=== PATIENT | female | born 1950 | race Caucasian/White ===

== ENCOUNTER 2020-12-24 18:18 | Observation (INO) | payer MEDICARE, OTHER ==
[2020-12-24] MEDS ORDERED: SODIUM CHLORIDE 0.9% 1,000 ML IV STA (18:55)
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
[2020-12-24 20:09] LABS: Basophils % (A) 0 %; Eosinophils # (A) 0.3 k/uL (0-0.7); Eosinophils % (A) 6 %; HCT 39.9 % (34.0-46.0); HGB 12.7 gm/dL (11.4-16.0); Lymphocytes # (A) 0.7 k/uL (1.0-4.8); Lymphocytes % (A) 14 %; MCH 26.4 pg (25.0-35.0); MCHC 31.7 g/dL (31.0-37.0); MCV 83.4 fL (80.0-100.0); Mean Platelet Volume 8.5; Monocytes # (A) 0.3 k/uL (0-1.0); Monocytes % (A) 5 %; Neutrophils # (A) 3.8 k/uL (1.3-7.7); Neutrophils % (A) 73 %; Platelet Count 204 k/uL (150-450); RBC 4.79 m/uL (3.80-5.40); RDW 15.5 % (11.5-15.5); WBC 5.2 k/uL (3.8-10.6)
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
[2020-12-24 20:20] LABS: ALT 13 U/L (4-34); AST 24 U/L (14-36); African American GFR (CKD) >90 (>60 ml/min/1.73 sqM); Alcohol <10 mg/dL; Alkaline Phosphatase 128 U/L (38-126); Anion Gap 8 mmol/L; Blood Urea Nitrogen 20 mg/dL (7-17); Calcium 9.8 mg/dL (8.4-10.2); Carbon Dioxide 28 mmol/L (22-30); Chloride 102 mmol/L (98-107); Glucose 97 mg/dL (74-99); Non-African American GFR(CKD) >90 (>60 ml/min/1.73 sqM); Potassium 3.7 mmol/L (3.5-5.1); Sodium 138 mmol/L (137-145); Total Bilirubin 0.5 mg/dL (0.2-1.3); Total Protein 7.2 g/dL (6.3-8.2)
[2020-12-24 20:27] LABS: INR 0.9 (<1.2); Partial Thromboplastin Time 21.8 sec (22.0-30.0); Prothrombin Time 9.8 sec (9.0-12.0)
[2020-12-24 20:59] LABS: Appearance,Urine Clear (Clear); Bilirubin,Urine Negative (Negative); Blood,Urine Negative (Negative); Color,Urine Light Yellow; Glucose,Urine (UA) Negative (Negative); Ketones,Urine Negative (Negative); Leukocyte Esterase,Urine Negative (Negative); Nitrite,Urine Negative (Negative); Protein,Urine Negative (Negative); Specific Gravity,Urine 1.006 (1.001-1.035); Urobilinogen,Urine <2.0 mg/dL (<2.0)
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
[2020-12-24] MEDS ORDERED: NALOXONE 0.4 MG/ML 1 ML VIAL IV PRN (21:56)
[2020-12-24 22:06] LABS: Amphetamine Screen,Urine Not Detected (NotDetected); Barbiturate Screen,Urine Not Detected (NotDetected); Benzodiazepines Screen,Urine Not Detected (NotDetected); Cocaine Screen,Urine Not Detected (NotDetected); Methadone Screen, Urine Not Detected (NotDetected); Opiate Screen,Urine Not Detected (NotDetected); Oxycodone Screen, Urine Not Detected (NotDetected); Phencyclidine Screen,Urine Not Detected (NotDetected); Tricyclic Antidepressant,Urine Not Detected (NotDetected); Urn Cannabinoid Scrn Not Detected (NotDetected)
[2020-12-24] MEDS ORDERED: HYDROcodone/APAP 7.5-325MG 1 EACH TAB PO ONE (22:48)
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
[2020-12-25] MEDS: HYDROcodone/APAP 7.5-325MG 1 EACH TAB PO PRN ×2 (05:29→19:59)
[2020-12-25] MEDS: LEVOTHYROXINE 50 MCG TAB PO SCH (05:29)
[2020-12-25] MEDS: GABAPENTIN 400 MG CAP PO SCH ×3 (08:03→19:59)
[2020-12-25] MEDS: SPIRONOLACTONE 25 MG TAB PO SCH (08:03)
[2020-12-25] MEDS: CLOPIDOGREL 75 MG TAB PO SCH (08:03)
[2020-12-25] MEDS: ASPIRIN 81 MG PO SCH (08:03)
[2020-12-25] MEDS: lisinopriL 5 MG TAB PO SCH (08:04)
[2020-12-25] MEDS ORDERED: DILTIAZEM CD 120 MG CAP.ER.24H PO SCH (09:00)
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
--- NOTE | 2020-12-25 12:35 | ECHOF ---
Referral Reason: MEASUREMENTS -------- HEIGHT: 152.4 cm WEIGHT: 122.5 kg BP: IVSd: 1.1 cm (0.6 - 1.1) LVIDd: 3.9 cm (3.9 - 5.3) LVPWd: 1.0 cm (0.6 - 1.1) IVSs: 1.5 cm LVIDs: 1.3 cm LVPWs: 1.3 cm LAESV Index (A-L): 27.93 ml/m Ao Diam: 3.1 cm (2.0 - 3.7) AV Cusp: 1.2 cm (1.5 - 2.6) LA Diam: 3.2 cm (2.7 - 3.8) MV EXCURSION: 11.800 mm (> 18.000) MV EF SLOPE: 47 mm/s (70 - 150) EPSS: 1.0 cm MV E Pantera: 1.09 m/s MV DecT: 263 ms MV A Pantera: 1.02 m/s MV E/A Ratio: 1.07 AV maxP.49 mmHg AV meanP.34 mmHg AR PHT: 565 ms RAP: 5.00 mmHg RVSP: 15.61 mmHg FINDINGS -------- Sinus rhythm. This was a technically adequate study. The left ventricular size is normal. Left ventricular wall thickness is normal. Overall left vent ricular systolic function is normal with, an EF between 55 - 60 %. Normal LAP Grade 1 Diastolic Dy sfunction. The right ventricle is normal in size. Normal LA size by volume 22+/-6 ml/m2. The right atrial size is normal. There is moderate aortic valve sclerosis. There is mild aortic regurgitation. There is mild aorti c stenosis present. Peak/mean gradient across the Aortic Valve is 31.49mmHg / 16.34mmHg. Mild mitral annular calcification present. Mild mitral regurgitation is present. The tricuspid valve appears structurally normal. Mild tricuspid regurgitation present. Right vent ricular systolic pressure is normal at < 35 mmHg. There is no pulmonic regurgitation present. The aortic root size is normal. Normal inferior vena cava with normal inspiratory collapse consistent with estimated right atrial pre ssure of 5 mmHg. There is no pericardial effusion. CONCLUSIONS -------- 1. Overall left ventricular systolic function is normal with, an EF between 55 - 60 %. 2. Normal LAP Grade 1 Diastolic Dysfunction. 3. Normal LA size by volume 22+/-6 ml/m2. 4. There is moderate aortic valve sclerosis. 5. There is mild aortic regurgitation. 6. There is mild aortic stenosis present. 7. Peak/mean gradient across the Aortic Valve is 31.49mmHg / 16.34mmHg. 8. Mild mitral regurgitation is present. 9. Mild tricuspid regurgitation present. 10. There is no pericardial effusion. CONCRETE HANDLER: Nyla Kendall RDCS
[2020-12-25 14:41] LABS: Chol/HDL Ratio 3.96
[2020-12-25] MEDS: PRAMIPEXOLE 0.5 MG TAB PO SCH ×2 (15:10→20:00)
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
[2020-12-25] MEDS: ALPRAZolam 0.25 MG TAB PO PRN ×2 (17:33→23:05)
--- NOTE | 2020-12-25 17:55 | P.PN ---
Subjective No acute events overnight Objective - Vital Signs Vital signs: Vital Signs Temp 98.2 F 12/25/20 14:49 Pulse 62 12/25/20 14:49 Resp 17 12/25/20 14:49 BP 133/69 12/25/20 14:49 Pulse Ox 98 12/25/20 14:49 Intake & Output 12/24/20 12/25/20 12/25/20 18:59 06:59 18:59 Weight 122.47 kg 122.47 kg Other: Voiding Method Toilet # Voids 2 1 - Exam General: The patient is awake and alert, in no distress Eye: there is normal conjunctiva bilaterally. Neck: The neck is supple, there is no JVD. Cardiovascular: Normal S1-S2, no S3-S4, no murmurs. Respiratory: Lungs clear to auscultation bilaterally Gastrointestinal: Abdomen is soft, nontender Musculoskeletal: There is no pedal edema. Neurological:. Speech is normal. Skin: Skin is warm and dry - Labs CBC & Chem 7: 12/24/20 19:24 12/24/20 19:24 Labs: Abnormal Lab Results - Last 24 Hours (Table) 12/24/20 12/24/20 12/24/20 Range/Units 19:24 19:24 19:24 Lymphocytes # 0.7 L (1.0-4.8) k/uL APTT 21.8 L (22.0-30.0) sec BUN 20 H (7-17) mg/dL Alkaline Phosphatase 128 H (38-126) U/L HDL Cholesterol (40.0-60.0) mg/dL 12/25/20 Range/Units 02:19 Lymphocytes # (1.0-4.8) k/uL APTT (22.0-30.0) sec BUN (7-17) mg/dL Alkaline Phosphatase (38-126) U/L HDL Cholesterol 26.0 L (40.0-60.0) mg/dL Assessment and Plan Assessment: Syncopal episodes Echocardiogram with preserved EF and no significant valvular abnormality Cleared by neurology Continue telemetry monitoring with possible loop recorder outpatient Seen and evaluated by cardiology Serial troponins are negative Covid testing negative Imaging showed no acute fractures or pathology Chronic conditions Hypertension resume cardiac meds hypothyroidism levothyroxin GERD resume PPI DVT prophylaxis mechanical Anticipated length of stay less than 2 midnights Anticipated discharge home Anticipated discharge home tomorrow
[2020-12-25] MEDS ORDERED: MONTELUKAST 10 MG TAB PO SCH (21:00)
[2020-12-26] MEDS: HYDROcodone/APAP 7.5-325MG 1 EACH TAB PO PRN ×2 (05:38→14:23)
[2020-12-26] MEDS: LEVOTHYROXINE 50 MCG TAB PO SCH (05:39)
[2020-12-26 06:29] LABS: African American GFR (CKD) 88 (>60 ml/min/1.73 sqM); Anion Gap 5 mmol/L; Blood Urea Nitrogen 21 mg/dL (7-17); Carbon Dioxide 29 mmol/L (22-30); Chloride 104 mmol/L (98-107); Glucose 88 mg/dL (74-99); Non-African American GFR(CKD) 76 (>60 ml/min/1.73 sqM); Potassium 4.2 mmol/L (3.5-5.1); Sodium 138 mmol/L (137-145)
[2020-12-26 07:36] VITALS: RESP 16
[2020-12-26] MEDS: ASPIRIN 81 MG PO SCH (08:09)
[2020-12-26] MEDS: CLOPIDOGREL 75 MG TAB PO SCH (08:10)
[2020-12-26] MEDS: GABAPENTIN 400 MG CAP PO SCH (08:11)
[2020-12-26] MEDS: lisinopriL 5 MG TAB PO SCH (08:11)
[2020-12-26] MEDS: PRAMIPEXOLE 0.5 MG TAB PO SCH (08:12)
[2020-12-26] MEDS ORDERED: SODIUM CHLORIDE 0.9% 1,000 ML IV SCH ×2 (08:30)
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
[2020-12-26] MEDS ORDERED: CLINDAMYCIN 600 MG in DEXTROSE 5% IN WATER 50 ML IVPB STA ×2 (09:18)
[2020-12-26] MEDS ORDERED: LIDOCAINE 1% INJ 10MG/ML (20 ML MDV) ONE (09:18)
[2020-12-26] MEDS ORDERED: SODIUM CHLORIDE 0.9% 500 ML 500 ML IV ONE (09:55)
[2020-12-26] MEDS ORDERED: fentaNYL (PF) 50 MCG/ML 2 ML AMP ONE (09:56)
[2020-12-26] MEDS ORDERED: MIDAZOLAM 2 MG/2 ML VIAL IV ONE (09:58)
[2020-12-26] MEDS ORDERED: fentaNYL (PF) 50 MCG/ML 2 ML AMP IV ONE (09:58)
[2020-12-26] MEDS ORDERED: LIDOCAINE 1% INJ 10MG/ML (20 ML MDV) SQ ONE (09:59)
[2020-12-26] MEDS ORDERED: ACETAMINOPHEN TAB 325 MG TAB PO PRN (10:06)
--- NOTE | 2020-12-26 10:10 | P.PCN ---
Date of Procedure: 12/26/20 Preoperative Diagnosis: Unexplained syncope Postoperative Diagnosis: The same Procedure(s) Performed: Insertion of loop recorder Description of Procedure: This is a 70-year-old female was admitted to the hospital with unexplained syncope. Patient was brought to the lab in a fasting state. She was prepped and draped in the usual fashion. She was given 1 mg of Versed and 50 g of fentanyl. The skin in the third intercostal space was infiltrated with lidocaine. An incision was made and stress loop recorder was inserted. The model number is [id number]. And the serial number is [id number]. The and she she was closed with one stay silk suture. Patient tolerated the procedure well. Final impression: Successful implantation of loop recorder. Plan: Patient could be discharged home later today. Follow-up with Dr. Mancuso as an outpatient
--- NOTE | 2020-12-26 10:44 | XR ---
EXAMINATION TYPE: XR chest 1V portable DATE OF EXAM: 12/26/2020 HISTORY: Shortness of breath. COMPARISON: 12/24/2020 TECHNIQUE: Single view of the chest is submitted. FINDINGS: Demonstrated are scattered senescent parenchymal change. There is no evidence for focal infiltrate. The heart is stable. Hilar and mediastinal structures are within normal limits. Degenerative changes are seen of the dorsal spine. IMPRESSION: 1. Chronic changes without evidence for acute pulmonary disease.
[2020-12-26] MEDS: ALPRAZolam 0.25 MG TAB PO PRN (12:06)
[2020-12-26] MEDS: SPIRONOLACTONE 25 MG TAB PO SCH (12:35)
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
[2020-12-26 14:59] VITALS: BP 107/70; PULSE 72; TEMP 97.8
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
[2020-12-27] MEDS ORDERED: CLINDAMYCIN 600 MG in SODIUM CHLORIDE 0.9% 250 ML IRRIGATION PRN (07:00)
== END 2020-12-26 17:02 | disposition home or self-care (01) ==
LOC: EC 18:18 → MERGE 21:56 → 3SCARD 21:56 → 6NMEDSUR 22:12
PROVIDERS: ADMIT Internal Medicine; ATTEND Internal Medicine
DX: R55 Syncope and collapse (principal); I44.0 Atrioventricular block, first degree; I08.3 Combined rheumatic disorders of mitral, aortic and tricuspid valves; I49.3 Ventricular premature depolarization; I49.1 Atrial premature depolarization; G47.33 Obstructive sleep apnea (adult) (pediatric); I65.23 Occlusion and stenosis of bilateral carotid arteries; I10 Essential (primary) hypertension; I89.0 Lymphedema, not elsewhere classified; E03.9 Hypothyroidism, unspecified; I73.9 Peripheral vascular disease, unspecified; K21.9 Gastro-esophageal reflux disease without esophagitis; M19.90 Unspecified osteoarthritis, unspecified site; E66.9 Obesity, unspecified; Z68.43 Body mass index [BMI] 50.0-59.9, adult; M25.512 Pain in left shoulder; V43.52XA Car driver injured in collision with other type car in traffic accident, initial encounter; Z20.822 Contact with and (suspected) exposure to COVID-19; Z79.82 Long term (current) use of aspirin; Z79.02 Long term (current) use of antithrombotics/antiplatelets; Z79.890 Hormone replacement therapy; Z79.899 Other long term (current) drug therapy; Z88.0 Allergy status to penicillin; Z88.6 Allergy status to analgesic agent; Z98.84 Bariatric surgery status; Z90.710 Acquired absence of both cervix and uterus; Z98.891 History of uterine scar from previous surgery; Z96.611 Presence of right artificial shoulder joint; Z96.642 Presence of left artificial hip joint; Z85.038 Personal history of other malignant neoplasm of large intestine; Z98.1 Arthrodesis status; Z98.890 Other specified postprocedural states
CPT/HCPCS: 99285; 36415; 93005; 93306; 86900; 86901; 80061; 80053; 80048; 84484 ×2; 85025; 85610; 85730; 86850; 81003; 80306; 87635; 72170; 73030; 71045 ×2; 93880; 70450; 33285; G0378 ×3; C1764; G0480; J2250; J2001; J3010; 80320

== ENCOUNTER → 2021-01-13 | Outpatient (CLI) | payer MEDICARE, OTHER ==
--- NOTE | 2021-01-16 12:58 | MM ---
Reason for exam: clinical finding. Last mammogram was performed 2 years and 10 months ago. History: Patient is postmenopausal. Family history of breast cancer in sister at age 55. Indicated problem(s): palpable abnormality in the right breast. Physical Findings: Nurse did not find any significant physical abnormalities on exam. MG 3D Diag Mammo W/Cad GISELE Bilateral CC and MLO view(s) were taken. Prior study comparison: March 20, 2018, [place] [facility] [place] 04, 2016, mammogram, [place] [facility] [place]. There are scattered fibroglandular densities. There are benign appearing round calcifications bilaterally. Prominent bilateral axillary lymph nodes redemonstrated. Loop recorder left posterior lower inner quadrant redemonstrated. These results were verbally communicated with the patient on 01/16/21. ASSESSMENT: Incomplete: need additional imaging evaluation, BI-RAD 0 RECOMMENDATION: Ultrasound of the right breast. (palpable)
--- NOTE | 2021-01-16 13:01 | USB ---
Reason for exam: additional evaluation requested from abnormal screening. History: Patient is postmenopausal. Family history of breast cancer in sister at age 55. US Breast Axilla RT Right breast axilla ultrasound demonstrates a 1.6 x 1.4 x 1.0cm irregular, solid, hyperechoic lesion at the axilla, possible lipoma but palpable. These results were verbally communicated with the patient and result sheet given to the patient on 01/13/21. ASSESSMENT: Suspicious, BI-RAD 4 RECOMMENDATION: Ultrasound core biopsy of the right breast. Called Dr. Mcgarry's office with mammographic findings and has scheduled an appointment for the patient for 01/22/21 at 10:[address] Kent. PRELIMINARY REPORT CALLED AND FAXED TO DR. KENT ON 01/16/21.
== END | disposition home or self-care (01) ==
LOC: RADMAMWWP 07:40
PROVIDERS: ATTEND Family Medicine
DX: R92.8 Other abnormal and inconclusive findings on diagnostic imaging of breast (principal); N63.11 Unspecified lump in the right breast, upper outer quadrant
CPT/HCPCS: 77066; 76642; G0279; 77062

== ENCOUNTER → 2021-02-04 | Day surgery (SDC) | payer MEDICARE, OTHER ==
[2021-02-04 10:17] VITALS: BP 125/72; PULSE 67; RESP 16; TEMP 98.1
--- NOTE | 2021-02-04 14:06 | USB ---
EXAMINATION TYPE: US discontinued breast core RT DATE OF EXAM: 02/04/2021 Comparison: Ultrasound 01/13/2021 and previous mammograms 01/13/2021 and 03/20/2018 Clinical History: 70-year-old female referred for right breast biopsy, R92.8 abn mamm Findings: Initial scanning for biopsy planning in the axillary region shows residual vague echogenic area at th e patient's previous palpable site measuring 1.3 x 0.6 cm. This is in comparison to 1.8 x 0.9 cm, pre viously. The patient reports that this area is no longer palpable. The patient is further questioned and reports the use of blood thinners and frequent bruising. Findin gs suspected to represent a small resolving hematoma. Additional 3 month follow-up is recommended to reassess. Just deep to this area within the right axilla is a prominent 2.5 x 1.6 x 0.9 cm axillary lymph node that shows eccentric 7 mm smooth cortical thickening. A chronic reactive lymph node is favored given the appearance on the 2018 and recent mammograms. This should also be reassessed at the follow-up ult rasound. Biopsy is discontinued. Findings and impression are discussed with the patient. IMPRESSION: 1. BI-RADS 3, probably benign. RECOMMENDATION: 1. Three-month follow-up right axillary ultrasound for (a) suspected involuting small hematoma and (b ) mildly enlarged and mildly thickened lymph node, suspected chronic reactive node when correlating w ith prior mammograms. 2. Patient should continue monthly self breast exams. 3. These results should not preclude additional follow-up of suspicious palpable abnormalities.
== END ==
LOC: RADUSWWP 09:10
PROVIDERS: ATTEND Surgery
DX: N63.10 Unspecified lump in the right breast, unspecified quadrant (principal); R92.8 Other abnormal and inconclusive findings on diagnostic imaging of breast; Z88.0 Allergy status to penicillin

== ENCOUNTER → 2021-06-17 | Outpatient (CLI) | payer MEDICARE ==
--- NOTE | 2021-06-18 11:03 | BD ---
EXAMINATION TYPE: Axial Bone Density DATE OF EXAM: 06/17/2021 COMPARISON: NONE CLINICAL HISTORY: 70 years year old Female. ICD-10 CODE: M85.89 DISORDER OF BONE DENSITY Height: 5 FT Weight: 270 FRAX RISK QUESTIONS: Alcohol (3 or more units per day): NO Family History (Parent hip fracture): NO Glucocorticoids (More than 3mos): NO (Ex: prednisone, prednisolone, methylprednisolone, dexamethasone, and hydrocortisone). History of Fracture in Adulthood: NO Secondary Osteoporosis: 1. Type 1 Diabetes: NO 2. Hyperthyroidism: NO 3. Menopause before 45: YES 4. Malnutrition: NO 5. Chronic liver disease: NO Rheumatoid Arthritis: YES Current Tobacco Use: NO RISK FACTORS HISTORY OF: Surgery to Spine/Hip(right/left)/Wrist (right/left): LEFT HIP REPLACED 2018,LUMBAR SURG L4-L5 PLATE A ND SCREWS DONE 2014 Family History of Osteoporosis: NO Active: NO Diet low in dairy products/other sources of calcium: NO Postmenopausal woman: YES Take estrogen and/or progesterone medications: DID USE HRT NO LONGER TAKES Lost more than 2 inches in height since high school: YES Frequent falls: UNSTEADY USES A WALKER Poor Health: FAIR Hyperparathyroidism: NO Adrenal Insufficiency: NO MEDICATIONS: Thyroid Medications: YES Which medication: LEVOTHYROXINE How Long: SEV YEARS Additional Medications: GABAPENTIN, LOSARTAN, LEVOTHYROXINE,PLAVIX, ASPIRIN,,H2O PILL, RESTLESS LEGS MEDS, Additional History: LYMPHADEMA IN BOTH LEGS EXAM MEASUREMENTS: Bone mineral density about the R hip (g/cm2): 0.635 T Score values are as follows: -----R Neck: -2.9 -----R Total: -3.0 PREV DONE [facility] Bone mineral density about the L Wrist (g/cm2): 0.562 T Score values are as follows: -----Dist. R+U: 1.1 -----Prox. R+U: -2.4 -----Radius total: -1.9 LAST BONE DESNITY DONE AT [facility] FRAX%s: The graph provided illustrates a 17.8% chance for a major osteoporotic fx and a 5.2 % chance for the hips probability for fx in 10 years time. IMPRESSION: Osteoporosis NOTE: T-SCORE=SD OF THE YOUNG ADULT MEAN.
== END | disposition home or self-care (01) ==
LOC: RADBDWWP 14:22
PROVIDERS: ATTEND Family Medicine
DX: M85.89 Other specified disorders of bone density and structure, multiple sites (principal)
CPT/HCPCS: 77080

== ENCOUNTER → 2021-06-24 | Outpatient (CLI) | payer MEDICARE ==
--- NOTE | 2021-06-24 14:18 | USB ---
Reason for exam: follow-up at short interval from prior study. History: Patient is postmenopausal. Family history of breast cancer in sister at age 55. US discontinued breast core RT of the right breast, February 04, 2021. Physical Findings: A clinical breast exam by your physician is recommended on an annual basis and results should be correlated with mammographic findings. US Breast Axilla RT Right breast axilla ultrasound demonstrates a 1.0cm lymph node with thickened 0.6cm cortex at the axillary tail, stable in size from 02/04/21. ASSESSMENT: Probably benign, BI-RAD 3 RECOMMENDATION: Ultrasound of the right breast in 3 months. Consider PET/CT for axillary lymph node.
== END | disposition home or self-care (01) ==
LOC: RADUSWWP 12:29
PROVIDERS: ATTEND Surgery
DX: R92.8 Other abnormal and inconclusive findings on diagnostic imaging of breast (principal)

== ENCOUNTER → 2021-09-02 | Outpatient (CLI) | payer MEDICARE, OTHER ==
--- NOTE | 2021-09-03 07:30 | CA ---
Transthoracic Echo Report Name: Henok Saenz Age: 70 Gender: F : 1950 Exam Date: 09/02/2021 13:47 Exam Location: [facility] Ht (in): 60 Wt (lb): 272 Ordering Physician: Huy Mcgarry DO Attending/Referring Phys: Alicia Aranda PAC [employer] Engineer Ambreen Hduson RDCS Procedure CPT: Indications: R60.0 Edema R53.83 Fatigue Cardiac Hx: Technical Quality: Fair Contrast 1: Total Dose (mL): Contrast 2: Total Dose (mL): MEASUREMENTS (Male / Female) Normal Values 2D ECHO LV Diastolic Diameter PLAX 3.6 cm 4.2 - 5.9 / 3.9 - 5.3 cm LV Systolic Diameter PLAX 2.5 cm IVS Diastolic Thickness 1.1 cm 0.6 - 1.0 / 0.6 - 0.9 cm LVPW Diastolic Thickness 1.1 cm 0.6 - 1.0 / 0.6 - 0.9 cm LV Relative Wall Thickness 0.6 RV Internal Dim ED PLAX 3.4 cm LVOT Diameter 2.0 cm LA Systolic Diameter LX 3.6 cm 3.0 - 4.0 / 2.7 - 3.8 cm M-MODE Aortic Root Diameter MM 2.8 cm MV E Point Septal Separation 0.4 cm DOPPLER AV Peak Velocity 237.5 cm/s AV Peak Gradient 22.6 mmHg AV Mean Velocity 167.4 cm/s AV Mean Gradient 12.5 mmHg AV Velocity Time Integral 50.2 cm AI Peak Velocity 321.9 cm/s AI Peak Gradient 41.4 mmHg AI Pressure Half Time 1198.0 ms LVOT Peak Velocity 133.5 cm/s LVOT Peak Gradient 7.1 mmHg LVOT Velocity Time Integral 27.0 cm LVOT Stroke Volume 87.9 cm??? LVOT Stroke Volume Index 41.3 ml/m??? AV Area Cont Eq vti 1.8 cm??? AV Area Cont Eq pk 1.8 cm??? MV Area PHT 2.8 cm??? Mitral E Point Velocity 113.3 cm/s Mitral A Point Velocity 107.0 cm/s Mitral E to A Ratio 1.1 MV Deceleration Time 274.5 ms MV E' Velocity 8.4 cm/s Mitral E to MV E' Ratio 13.6 FINDINGS Left Ventricle Left ventricular ejection fraction is estimated at 60-65 %. Left ventricular cavity size normal. Borderline left ventricular hypertrophy. Right Ventricle Mild right ventricular dilatation. Unable to estimate the right ventricular systolic pressure. Right Atrium Normal right atrial size. Left Atrium Normal left atrial size. Mitral Valve Mitral annular calcification. Aortic Valve Focal thickening of the aortic valve cusps. Mild aortic stenosis with a peak gradient of 23 mmHg and a mean gradient of 15 mmHg. Trace to mild aortic regurgitation. Tricuspid Valve Structurally normal tricuspid valve. No tricuspid stenosis, regurgitation or prolapse. Pulmonic Valve Pulmonic valve not well visualized. Pericardium Normal pericardium. Aorta Normal size aortic root and proximal ascending aorta. CONCLUSIONS Normal left ventricular ejection fraction 60-65% Mild right ventricular dilation Mild aortic stenosis with mean gradient of 15 mmHg Mild aortic regurgitation Previewed by: Dr. Aidan Moreno DO (Electronically Signed) Final Date: 03 September 2021 07:29
== END | disposition home or self-care (01) ==
LOC: RADECHMAIN 13:29
PROVIDERS: ATTEND Family Medicine
DX: I51.7 Cardiomegaly (principal); I35.0 Nonrheumatic aortic (valve) stenosis; R11.10 Vomiting, unspecified
CPT/HCPCS: 93306

== ENCOUNTER 2021-09-11 06:06 | Day surgery (SDC) | payer MEDICARE, OTHER ==
[~2021-09-11 06:06] MED LIST: ALPRAZolam 0.25 MG TAB PO PRN; ALPRAZolam 0.5 MG TAB PO PRN; ASPIRIN 325 MG TAB PO STA; ATORVASTATIN 80 MG TAB PO STA; NITROGLYCERIN SL TABS 0.4 MG TAB SUBLINGUAL PRN; SODIUM CHLORIDE 0.9% 1,000 ML in EMPTY BAG 1 BAG IV SCH
[2021-09-11] MEDS ORDERED: HEPARIN SODIUM,PORCINE 2,500 UNIT in SODIUM CHLORIDE 0.9% 250 ML IRRIGATION PRN (07:00)
[2021-09-11] MEDS ORDERED: HEPARIN SODIUM,PORCINE 10,000 UNIT in SODIUM CHLORIDE 0.9% 1,000 ML IRRIGATION PRN (07:00)
[2021-09-11 07:13] VITALS: RESP 16; TEMP 97.5
[2021-09-11] MEDS ORDERED: VERAPAMIL 2.5 MG/ML 2 ML AMP ONE (07:14)
[2021-09-11] MEDS ORDERED: HEPARIN SODIUM 1,000 UN/ML (10ML VL) ONE (07:37)
[2021-09-11] MEDS ORDERED: fentaNYL (PF) 50 MCG/ML 2 ML AMP ONE (07:37)
[2021-09-11] MEDS: fentaNYL (PF) 50 MCG/ML 2 ML AMP IVP ONE ×2 (07:54→08:02)
[2021-09-11] MEDS ORDERED: MIDAZOLAM 2 MG/2 ML VIAL IVP ONE (07:59)
[2021-09-11] MEDS ORDERED: LIDOCAINE 1% INJ 10MG/ML (5 ML VIAL-PF) SQ ONE (08:03)
[2021-09-11] MEDS ORDERED: VERAPAMIL SYRINGE (5 MG/10 ML) INTRAARTER ONE (08:06)
[2021-09-11] MEDS ORDERED: HEPARIN SODIUM 1,000 UN/ML (10ML VL) IVP ONE (08:11)
[2021-09-11] MEDS ORDERED: IOPAMIDOL-370 125ML BTL INJ ONE (08:17)
[2021-09-11] MEDS ORDERED: RX INFO: IV CONTRAST WAS GIVEN 1 EACH MISC MISCELLANE PRN (08:27)
[2021-09-11] MEDS ORDERED: HYDROcodone/APAP 7.5-325MG 1 EACH TAB PO PRN (08:28)
[2021-09-11] MEDS ORDERED: SODIUM CHLORIDE 0.9% 1,000 ML IV SCH (08:30)
--- NOTE | 2021-09-11 08:37 | P.CARDCATH ---
Date of Procedure: 09/11/21 Description of Procedure: Cardiac Catheterization: The patient is a 70-year-old female with a history of hypertension peripheral vascular disease who presents with symptoms of progressive dyspnea and an abnormal MPI. Recommendations were made regarding cardiac catheterization, the risks and the complications were discussed with the patient who is in full understanding and agreement. Procedure Description: Patient was brought to slab lifting engineer in fasting semi-sedated state after receiving Fentanyl and Benadryl achieiving moderate conscious sedated state. Using Xylocaine Anesthesia and Seldinger technique, a 6-[place]i sheath was introduced in the right radial artery . Subsequently, selective coronary angiography performed using a 5-[place]i 3.5 bend Suzanne catheter. Multiple views of the coronary artery including hemiaxial views were obtained. The 5-[place] pigtail catheter was used to cross the aortic valve and LVEDP was calculated. Following that, catheter and sheath were removed. Hemostasis was obtained with deployment of TR band . There was no immediate complication. Patient was returned to room in stable condition. Of note, the patient received a total of 5000 units of intravenous heparin as well as intra-arterial verapamil. There was no immediate complications. Findings: Fluoroscopy: There is severe calcification involving the left main and the proximal LAD Left main: This is a size vessel, bifurcating into LAD and left circumflex, left main has no evidence of high-grade stenosis. LAD: This is a size vessel, reaching to the apex is heavily calcified proximally, giving rise to 2 diagonal branch. The LAD had a 10 to 20% plaque with no high-grade stenosis. Left circumflex: This is a nondominant vessel, giving rise to a large obtuse marginal branch. The ostium of the left circumflex has 20% plaque. RCA: This is a large dominant vessel, calcified, bifurcating into PDA and PLV. The proximal and mid RCA had 10-20% plaque. Left Ventriculogram: Was not performed Hemodynamics: There was no gradient across the aortic valve, LVEDP 14-16 mmHg Conclusion: 1. Calcified coronary arteries 2. Mild triple vessel disease 3. Right dominance Recommendations: I have recommended to continue medical therapy with aggressive coronary risks modifications. The findings and recommendations were discussed with the patient. Duration of sedation: 18 minutes.
[2021-09-11] MEDS ORDERED: ASPIRIN 81 MG PO SCH (09:00)
[2021-09-11] MEDS ORDERED: CLOPIDOGREL 75 MG TAB PO SCH (09:00)
[2021-09-11] MEDS ORDERED: ATORVASTATIN 40 MG TAB PO SCH (09:00)
[2021-09-11] MEDS ORDERED: LOSARTAN 25 MG TAB PO SCH (09:00)
[2021-09-11] MEDS ORDERED: NON FORMULARY DRUG (Famotidine [Pepcid] 40 MG Tablet) PO SCH (09:00)
[2021-09-11] MEDS ORDERED: NON FORMULARY DRUG (Spironolactone [Spironolactone] 50 MG Tablet) PO SCH (09:00)
[2021-09-11] MEDS ORDERED: GABAPENTIN 400 MG CAP PO SCH (09:00)
[2021-09-11] MEDS ORDERED: LEVOTHYROXINE 50 MCG TAB PO SCH (09:00)
[2021-09-11] MEDS ORDERED: NON FORMULARY DRUG (Cholecalciferol (Vitamin D3) [Vitamin D3 (125 Mcg = 5,000 Iu)] 125 MCG PO SCH (15:00)
[2021-09-11 16:16] VITALS: BP 137/76; PULSE 80
[2021-09-11] MEDS ORDERED: DOCUSATE 100 MG CAP PO SCH (21:00)
[2021-09-11] MEDS ORDERED: NON FORMULARY DRUG (Vitamin B Complex [Vitamin B Complex] 1 EACH Capsule) PO SCH (21:00)
[2021-09-11] MEDS ORDERED: MONTELUKAST 10 MG TAB PO SCH (21:00)
[2021-09-14] MEDS ORDERED: NON FORMULARY DRUG (Zinc Gluconate 50 MG Tab) PO SCH (08:28)
== END 2021-09-11 12:37 | disposition home or self-care (01) ==
LOC: CATHCVL 06:06
PROVIDERS: ATTEND Internal Medicine Interventional Cardiology
DX: I25.10 Atherosclerotic heart disease of native coronary artery without angina pectoris (principal); R94.39 Abnormal result of other cardiovascular function study; I10 Essential (primary) hypertension; I73.9 Peripheral vascular disease, unspecified; R55 Syncope and collapse; G47.33 Obstructive sleep apnea (adult) (pediatric); Z20.822 Contact with and (suspected) exposure to COVID-19; Z79.82 Long term (current) use of aspirin; Z79.899 Other long term (current) drug therapy; Z79.890 Hormone replacement therapy; Z79.02 Long term (current) use of antithrombotics/antiplatelets; Z88.0 Allergy status to penicillin; Z88.8 Allergy status to other drugs, medicaments and biological substances
CPT/HCPCS: 93458; 87635; C1769 ×3; C1894; J2250; J2001; J3010; J1644; Q9967

== ENCOUNTER 2021-10-02 08:54 | Emergency (ER) | payer MEDICARE, OTHER ==
[2021-10-02 09:09] VITALS: RESP 20; TEMP 98.8
[2021-10-02] MEDS ORDERED: HYDROmorphone 0.5 MG/0.5 ML SYRINGE IM STA (09:43)
--- NOTE | 2021-10-02 10:26 | ED ---
General Adult HPI - General Chief complaint: Extremity Injury, Lower Stated complaint: rt let pain Time Seen by Provider: 10/02/21 09:10 Source: patient, EMS, RN notes reviewed, old records reviewed Mode of arrival: EMS Limitations: no limitations - History of Present Illness Initial comments: This is a 62-year-old female presents emergency Department complaining that her left leg has been more painful and more swollen over the last couple of days. Patient states her primary medical care doctor wanted to come in to get a ultrasound to rule out a DVT. Patient points to the anterior lateral aspect of the leg as to where her pain is. Patient denies any difficulty breathing shortness of breath or chest pain. Patient states she has lymphedema for years and she doesn't know why. - Related Data Home Medications Medication Instructions Recorded Confirmed Aspirin 81 mg PO DAILY 12/24/20 09/11/21 Calcium/D3/Zinc/Copper/Alfred 1 tab PO BID 12/24/20 09/11/21 [Citracal-D3 Maximum Plus Caplt] Cholecalciferol (Vitamin D3) 125 mcg PO DAILY@1500 12/24/20 09/11/21 [Vitamin D3 (125 MCG = 5,000 IU)] Clopidogrel Bisulfate [Plavix] 75 mg PO DAILY 12/24/20 09/11/21 Docusate [Colace] 200 mg PO HS 12/24/20 09/11/21 Gabapentin [Neurontin] 800 mg PO TID 12/24/20 09/11/21 HYDROcodone/APAP 7.5-325MG [[place] 1 tab PO BID PRN 12/24/20 09/11/21 7.5-325] Levothyroxine Sodium [Synthroid] 50 mcg PO DAILY 12/24/20 09/11/21 Montelukast Sodium [Singulair] 10 mg PO HS 12/24/20 09/11/21 Spironolactone 50 mg PO DAILY 12/24/20 09/11/21 Vitamin B Complex 1 cap PO HS 12/24/20 09/11/21 Zinc Gluconate [Zinc] 50 mg PO MOTH 12/24/20 09/11/21 Famotidine [Pepcid] 40 mg PO DAILY 12/25/20 09/11/21 Furosemide [Lasix] 40 mg PO DAILY 09/09/21 09/11/21 Losartan [Cozaar] 25 mg PO DAILY 09/09/21 09/11/21 Previous Rx's Medication Instructions Recorded Atorvastatin [Lipitor] 40 mg PO DAILY #90 tab 09/11/21 Allergies Allergy/AdvReac Type Severity Reaction Status Date / Time ibuprofen [From Motrin] Allergy Cough Verified 09/09/21 14:38 Penicillins Allergy Rash/Hives Verified 09/09/21 15:35 Review of Systems ROS Statement: Those systems with pertinent positive or pertinent negative responses have been documented in the HPI. ROS Other: All systems not noted in ROS Statement are negative. Past Medical History Past Medical History: Cancer, Hypertension, Sleep Apnea/CPAP/BIPAP, Thyroid Disorder Additional Past Medical History / Comment(s): lymphedema. Colon cancer 2017 History of Any Multi-Drug Resistant Organisms: None Reported Past Surgical History: Adenoidectomy, Bariatric Surgery, Section, Hysterectomy, Orthopedic Surgery, Tonsillectomy Past Anesthesia/Blood Transfusion Reactions: No Reported Reaction Past Psychological History: No Psychological Hx Reported Smoking Status: Never smoker Past Alcohol Use History: None Reported Past Drug Use History: None Reported - Past Family History Father Family Medical History: Myocardial Infarction (AR) Family Family Medical History: No Reported History General Exam - General Exam Comments Initial Comments: GENERAL: Patient is well-developed and well-nourished. Patient is nontoxic and well-hydrated and is in no acute distress. Patient was sleeping comfortably when I walked into the room ENT: Neck is soft and supple. No significant lymphadenopathy is noted. Oropharynx is clear. Moist mucous membranes. Neck has full range of motion without eliciting any pain. EYES: The sclera were anicteric and conjunctiva were pink and moist. Extraocular movements were intact and pupils were equal round and reactive to light. Eyelids were unremarkable. PULMONARY: Unlabored respirations. Good breath sounds bilaterally. No audible rales rhonchi or wheezing was noted. CARDIOVASCULAR: There is a regular rate and rhythm without any murmurs gallops or rubs. ABDOMEN: Soft and nontender with normal bowel sounds. SKIN: Skin is clear with no lesions or rashes and otherwise unremarkable. NEUROLOGIC: Patient is alert and oriented x3. Cranial nerves II through XII are grossly intact. Motor and sensory are also intact. Normal speech, volume and content. Symmetrical smile. MUSCULOSKELETAL: Normal extremities with adequate strength and full range of motion. Bilateral leg swelling with chronic cellulitis. Patient has some tenderness over the anterior lateral aspect of the lower right leg. There is no calf tenderness. LYMPHATICS: No significant lymphadenopathy is noted PSYCHIATRIC: Normal psychiatric evaluation. Limitations: no limitations Course Vital Signs 10/02/21 08:58 Temperature 98.8 F Pulse Rate 74 Respiratory 20 Rate Blood Pressure 98/63 O2 Sat by Pulse 95 Oximetry Medical Decision Making - Medical Decision Making Patient's ultrasound shows no DVT Disposition Clinical Impression: Lymphedema due to chronic inflammation Disposition: HOME SELF-CARE Instructions (If sedation given, give patient instructions): Lymphedema (ED) Is patient prescribed a controlled substance at d/c from ED?: No Referrals: Huy Mcgarry DO [Primary Care Provider] - 1-2 days Time of Disposition: 11:30
--- NOTE | 2021-10-02 11:00 | US ---
EXAMINATION TYPE: US venous doppler duplex LE RT DATE OF EXAM: 10/02/2021 9:44 AM COMPARISON: NONE CLINICAL HISTORY: Rule out DVT. SIDE PERFORMED: TECHNIQUE: The lower extremity deep venous system is examined utilizing real time linear array sonog mandy with graded compression, doppler sonography and color-flow sonography. VESSELS IMAGED: Common Femoral Vein Deep Femoral Vein Greater Saphenous Vein * Femoral Vein Popliteal Vein Small Saphenous Vein * Proximal Calf Veins (* superficial vessels) Right Leg: appears negative for DVT Morbidly obese patient. IMPRESSION: 1. Right lower extremity ultrasound negative for deep venous thrombosis.
[2021-10-02 11:40] VITALS: BP 109/47; PULSE 81
== END 2021-10-02 11:55 | disposition home or self-care (01) ==
LOC: EC 08:54
DX: I10 Essential (primary) hypertension (principal); I89.0 Lymphedema, not elsewhere classified; E07.9 Disorder of thyroid, unspecified; Z79.899 Other long term (current) drug therapy; Z88.0 Allergy status to penicillin; Z88.5 Allergy status to narcotic agent; Z82.49 Family history of ischemic heart disease and other diseases of the circulatory system
CPT/HCPCS: 96372; 93971; 99284; J1170

== ENCOUNTER → 2021-10-08 | Outpatient (CLI) | payer MEDICARE, OTHER ==
--- NOTE | 2021-10-08 07:59 | USB ---
Reason for Exam: Follow-up at short interval from prior study. Patient History: Menarche at age 14. First Full-Term at age 23. Left ovary removed at age 35. Right ovary removed at age 35. Hysterectomy at age 35. Postmenopausal. 02/04/2021, US discontinued breast core RT on the right side. Sister had breast cancer, age 55. Risk Values: Divya 5 year model risk: 3.3%. NCI Lifetime model risk: 10.4%. Technique: Method: Targeted. Patient Position: Supine. Prior Study Comparison: 08/04/2016 Scre[place], [facility] [place]. 03/20/2018 Screening Mammogram, [facility] [place]. 01/13/2021 Bilateral Diagnostic Mammogram, [facility]. Findings: The axilla of the right breast was scanned. Enlarged lymph node within the right axilla is redemonstrated however there is an area of decreased echogenicity within its mid to lower pole. Tissue diagnosis is recommended. Management: Ultrasound Core Biopsy of the right breast. A clinical breast exam by your physician is recommended on an annual basis and results should be correlated with mammographic findings. Electronically signed and approved by: Tate Rouse M.D. Radiologis
== END | disposition home or self-care (01) ==
LOC: RADUSWWP 07:24
PROVIDERS: ATTEND Surgery
DX: R92.8 Other abnormal and inconclusive findings on diagnostic imaging of breast (principal)

== ENCOUNTER → 2021-10-23 | Day surgery (SDC) | payer MEDICARE, OTHER ==
--- NOTE | 2021-10-29 12:20 | USB ---
Risk Values: Divya 5 year model risk: 3.3%. NCI Lifetime model risk: 10.4%. Prior Study Comparison: 08/04/2016 Screening Mammogram, [facility] [place]. 03/20/2018 Screening Mammogram, [facility] [place]. 01/13/2021 Bilateral Diagnostic Mammogram, [facility]. Pathology Description: Location: middle, axilla. The procedure of ultrasound guided core biopsy was explained to the patient. Benefits, alternatives, and risks were discussed. An informed consent was then obtained. The patient was placed in supine positioning for imaging and for the procedure. The overlying skin was prepped and draped in usual sterile fashion. Lidocaine buffered with bicarbonate was used as anesthetic into the skin and subcutaneous tissue up to area of concern in the right axilla. A mao was made with surgical scalpel. Under ultrasound guidance, a 12-gauge vacuum assisted biopsy gun device was used to obtain 3 core samples right axillary lymph node. Following this, a biopsy clip was left in lesion. The patient tolerated the procedure well without any immediate complication. The patient was kept in the radiology department for short stay after the procedure and then discharged home in stable condition. Impression: Successful, uncomplicated ultrasound guided core biopsy of right axillary lymph node. Full pathology results to follow. Pathology Results: Result: Benign, Lymph node. RIGHT AXILLA, NEEDLE CORE BIOPSY: Benign lymph node tissue. See note. Overall Assessment: Benign Management: Diagnostic Mammogram of the right breast in 6 months. Electronically signed and approved by: Tate Rouse M.D. Radiologis
== END ==
LOC: RADUSWWP 09:38
PROVIDERS: ATTEND Surgery
DX: R92.8 Other abnormal and inconclusive findings on diagnostic imaging of breast (principal)
CPT/HCPCS: 88305; 88342; 76942; 38505; A4648

== ENCOUNTER → 2023-03-07 | Outpatient (CLI) | payer MEDICARE, OTHER ==
--- NOTE | 2023-03-07 15:18 | XR ---
EXAMINATION TYPE: XR abdomen 2V DATE OF EXAM: 03/07/2023 3:12 PM CLINICAL INDICATION:Female, 72 years old with history of [id number] CELLULITIS ABD WALL,RLQ PAIN; [facility] COMPARISON: None. TECHNIQUE: Two views of the abdomen were obtained. FINDINGS: The bowel gas pattern is nonspecific without dilated loops of small or large bowel. There i s no evidence for organomegaly or pneumoperitoneum. The osseous structures are intact. No abnormal calcifications are present. Fecal material and gas are demonstrated throughout the colon and rectum. Postsurgical changes to the spine hardware appears intact. Left hip arthroplasty changes appears int act. Surgical anchors project over the lower abdomen. Surgical clips in right upper quadrant left low er pelvis. IMPRESSION: Nonspecific bowel gas pattern without radiographic evidence for acute process.
== END | disposition home or self-care (01) ==
LOC: RADXRYALE 14:58
PROVIDERS: ATTEND Physician Assistant Medical
DX: L03.311 Cellulitis of abdominal wall (principal); R14.0 Abdominal distension (gaseous)
CPT/HCPCS: 74019

== ENCOUNTER 2023-08-11 09:59 | Day surgery (SDC) | payer MEDICARE ==
[2023-08-08 15:23] VITALS: BMI 52.7
[~2023-08-11 09:59] MED LIST changes: -ALPRAZolam 0.25 MG TAB PO PRN; -ALPRAZolam 0.5 MG TAB PO PRN; -ASPIRIN 325 MG TAB PO STA; -ATORVASTATIN 80 MG TAB PO STA; -NITROGLYCERIN SL TABS 0.4 MG TAB SUBLINGUAL PRN; -SODIUM CHLORIDE 0.9% 1,000 ML in EMPTY BAG 1 BAG IV SCH; +ceFAZolin 1 GM in SODIUM CHLORIDE 0.9% IRRIG BTL 250 ML IRRIGATION PRN
[2023-08-11] MEDS: SODIUM CHLORIDE 0.9% 1,000 ML IV ONE (10:49)
[2023-08-11 11:26] VITALS: RESP 16
[2023-08-11 11:26] LABS: Basophils % (A) 1 %; Eosinophils # (A) 0.1 k/uL (0-0.7); Eosinophils % (A) 3 %; HGB 11.4 gm/dL (11.4-16.0); Lymphocytes # (A) 0.7 k/uL (1.0-4.8); Lymphocytes % (A) 17 %; MCH 26.7 pg (25.0-35.0); MCHC 31.8 g/dL (31.0-37.0); MCV 83.9 fL (80.0-100.0); Mean Platelet Volume 8.3; Monocytes # (A) 0.3 k/uL (0-1.0); Monocytes % (A) 7 %; Neutrophils # (A) 3.1 k/uL (1.3-7.7); Neutrophils % (A) 70 %; Platelet Count 195 k/uL (150-450); RBC 4.29 m/uL (3.80-5.40); RDW 15.2 % (11.5-15.5); WBC 4.3 k/uL (3.8-10.6)
[2023-08-11 11:50] LABS: African American GFR (CKD) >90 (>60 ml/min/1.73 sqM); Anion Gap 7 mmol/L; Blood Urea Nitrogen 30 mg/dL (7-17); Calcium 8.7 mg/dL (8.4-10.2); Carbon Dioxide 29 mmol/L (22-30); Chloride 102 mmol/L (98-107); Glucose 87 mg/dL (74-99); Non-African American GFR(CKD) 78 (>60 ml/min/1.73 sqM); Sodium 138 mmol/L (137-145)
[2023-08-11 12:16] LABS: Potassium 4.3 mmol/L (3.5-5.1)
[2023-08-11] MEDS: MIDAZOLAM 2 MG/2 ML VIAL IVP ONE ×2 (12:50→13:10)
[2023-08-11] MEDS: fentaNYL (PF) 50 MCG/ML 2 ML AMP IVP ONE ×2 (12:50→13:14)
[2023-08-11] MEDS: LIDOCAINE 1% INJ 10MG/ML (20 ML MDV) SQ ONE ×3 (13:00→13:22)
[2023-08-11] MEDS: HYDROcodone/APAP 7.5-325MG 1 EACH TAB PO PRN (14:54)
--- NOTE | 2023-08-11 16:29 | XR ---
EXAMINATION TYPE: XR chest 1V portable DATE OF EXAM: 08/11/2023 Comparison: 12/26/2020 Clinical History: 72-year-old female Lead placement check Findings: Reverse right shoulder arthroplasty. Left anterior chest wall pacemaker generator with right atrial a nd right ventricular leads. No appreciable pneumothorax. Loop recorder device projecting over the lef t side of the heart. Surgical clips left axilla. Heart borderline enlarged. Rightward patient rotatio n altered normal cardiac and mediastinal contours. Hazy lung densities related to overlying soft tiss ue. No consolidation or pleural effusion seen. Impression: Borderline heart size. No definite acute process. No appreciable pneumothorax.
[2023-08-11] MEDS: SODIUM CHLORIDE 0.9% 1,000 ML IV SCH ×2 (16:57→16:58)
[2023-08-11] MEDS: ceFAZolin 3 GM in SODIUM CHLORIDE 0.9% 100 ML IVPB SCH (19:09)
[2023-08-11] MEDS: ACETAMINOPHEN TAB 325 MG TAB PO PRN (20:34)
[2023-08-11] MEDS: MONTELUKAST 10 MG TAB PO SCH (22:18)
[2023-08-11] MEDS: PRAMIPEXOLE 0.5 MG TAB PO SCH (22:18)
[2023-08-11] MEDS: diphenhydrAMINE 25 MG CAP PO SCH (22:18)
[2023-08-12] MEDS: LEVOTHYROXINE 50 MCG TAB PO SCH (04:17)
[2023-08-12 08:21] VITALS: BP 114/72; PULSE 77; TEMP 98.6
--- NOTE | 2023-08-12 23:50 | P.PCN ---
Description of Procedure: CARDIOLOGY PROCEDURE NOTE Production Control Manager: Dr. Aidan Moreno Procedure performed: Insertion dual chamber permanent pacemaker Site: Left subclavian Indications: Sick Sinus Syndrome, up to 7 second sinus arrest Complications: None Blood Loss: Minimal Description of Procedure: After the risks, benefits, and alternatives of the above-mentioned procedure was explained in detail with the patient, informed consent was obtained. The patient was taken to the cardiac catheterization suite where the left subclavian area was sterily prepped and draped in the usual fashion. One percent lidocaine was used to anesthetize the left subclavian area. Twenty milliliters of Isoview 370 contrast was injected into the left antecubital vein to allow for direct visualization of the left subclavian vein under fluoroscopy. A 1.5 inch incision was made utilizing a #15 blade in the left subclavian site. Hemostasis was made complete. Electrocautery along with digital blunt dissection was utilized to dissect to the level of the pectoralis muscle fascia and create a pocket large enough to accommodate the generator. A thin walled micro puncuture needle was used to cannulate the left subclavian vein. A guide-wire was inserted through the needle into the vascular lumen under fluoroscopic guidance. The needle was removed. Another thin walled micr puncture needle was used to again cannulate the left subclavian vein. A guide-wire was inserted through the needle into the vascular lumen under fluoroscopic guidance. The needle was removed and both guide-wires were attached to the field. A venous sheath and dilator were advanced over the guidewire into the vascular lumen under fluoroscopic guidance. The dilator and guidewire were then removed. A right ventricular bipolar lead was inserted into the sheath and advanced under fluoroscopic guidance into the right ventricle under fluoroscopic guidance. Adequate sensing and pacing thresholds were achieved and the lead was screwed into place in the RV apex. The sheath was then torn away. The lead collar was advanced and anchored into place utilizing #0 silk suture. Next, another venous sheath and dilator were advanced under fluoroscopic guidance into the vascular lumen over the guidewire. After removal of the dilator and guidewire, a right atrial bipolar lead was inserted into this sheath and advanced under fluoroscopic guidance into the right atrium. The lead was positioned into the right atrial appendage. Adequate sensing and pacing thresholds were then achieved with patient being in Aflutter at the time and the lead was screwed into place. The sheath was then torn away. The lead collar was advanced and anchored into place utilizing #0 silk suture. The leads were then inserted into the appropriate position into the generator. They were then secured with the setscrew provided. The leads and generator were inserted into the pocket with the leads posterior. The subcutaneous tissue was approximated utilizing #2.0 and 3.0 vicryl in an interrupted stitch fashion. The dermal layer was approximated utilizing #4.0 vicryl. The area was cleansed with sterile saline and dried. A sterile 4x4 dressing was applied and the patient was transferred to the post catheterization holding area in stable and satisfactory condition. The patient tolerated the procedure well. Generator Data Cane Burner: [employer] Brand: [id number] Tracie XT DR MRI Model #: [id number] Serial#: [id number] Right Atrial Bipolar Lead Data: Type: Active fixation lead Cane Burner: Medtronic Model#: [id number] Serial Number: [id number] Right Ventricular Bipolar Lead Data: Type: Active fixation lead Cane Burner: Medtronic Model #: [id number] Serial #: [id number] Stimulation Thresholds: Right atrial bipolar lead pacing and sensing thresholds Voltage: 0.7 Impedance: 400 ohms P-wave sensin.5 mV Right Ventricular bipolar lead pacing and sensing thresholds Pulse Width: 0.4ms Voltage: 1.0 volts Impedance: 836 ohms R-wave sensin.5 mV Parameter Setting: Pacing mode is AAIR<=>DDDR Lower rate 60 bpm Upper rate 130 bpm Impressions: 1. Successful implantation of a dual chamber permanent pacemaker in the left pectoral site. Plan: 1. Routine post procedure care will be instituted as well as outpatient follow- up surveillance.
== END 2023-08-12 13:56 | disposition home or self-care (01) ==
LOC: CATHEP 09:59 → 6NMEDSUR 14:09 → CATHEP 08-12 13:56
PROVIDERS: ATTEND Internal Medicine
DX: I49.5 Sick sinus syndrome (principal); I10 Essential (primary) hypertension; I73.9 Peripheral vascular disease, unspecified; G47.33 Obstructive sleep apnea (adult) (pediatric); E78.5 Hyperlipidemia, unspecified; I25.10 Atherosclerotic heart disease of native coronary artery without angina pectoris; Z88.6 Allergy status to analgesic agent; Z88.2 Allergy status to sulfonamides; Z88.8 Allergy status to other drugs, medicaments and biological substances; Z88.0 Allergy status to penicillin; Z79.02 Long term (current) use of antithrombotics/antiplatelets; Z79.899 Other long term (current) drug therapy; Z87.891 Personal history of nicotine dependence
CPT/HCPCS: 33208; 80048; 85025; 71045; C1892; C1898; C1769; C1785; J2250; J0690; J2001; J3010

== ENCOUNTER → 2024-01-20 | Outpatient (CLI) | payer MEDICARE ==
--- NOTE | 2024-01-20 11:18 | XR ---
EXAMINATION TYPE: XR knee complete RT DATE OF EXAM: 01/20/2024 10:58 AM CLINICAL INDICATION: Female, 73 years old with history of [id number] RT KNEE PAIN; [facility] COMPARISON: None. TECHNIQUE: XR knee complete RT; examined in Frontal, lateral and oblique projections. FINDINGS: Complete loss of joint space in the lateral aspect of the knee with osteophytes and subchon dral sclerosis. No evidence of fracture. No dislocation. IMPRESSION: 1. No acute osseous pathology. 2. End-stage right tricompartmental osteoarthritic changes. [facility], , 01/20/2024 11:16 AM
== END | disposition home or self-care (01) ==
LOC: RADXRYALE 10:33
PROVIDERS: ATTEND Physician Assistant Medical
DX: M17.11 Unilateral primary osteoarthritis, right knee (principal)

== ENCOUNTER → 2024-09-14 | Outpatient (CLI) | payer MEDICARE ==
--- NOTE | 2024-09-14 10:58 | MM ---
Reason for Exam: Screening (asymptomatic). Last mammogram was performed 3 year(s) and 8 month(s) ago. Patient History: Menarche at age 14. First Full-Term at age 23. Left ovary removed at age 35. Right ovary removed at age 35. Hysterectomy at age 35. Postmenopausal. 10/23/2021, Benign US biopsy breast VAD RT on the right side. 02/04/2021, US discontinued breast core RT on the right side. Sister had breast cancer, age 55. Risk Values: Divya 5 year model risk: 3.9%. NCI Lifetime model risk: 10.6%. Prior Study Comparison: 08/04/2016 Screening Mammogram, [facility] [place]. 03/20/2018 Screening Mammogram, [facility] [place]. 01/13/2021 Bilateral Diagnostic Mammogram, [facility]. Tissue Density: There are scattered areas of fibroglandular density. Findings: Analyzed By CAD. There is no suspicious group of microcalcifications or new suspicious mass in either breast. Subcutaneous implantable device overlying the left breast. There is a cardiac device limiting assessment of the left upper breast. Overall Assessment: Benign, BI-RAD 2 Management: Screening Mammogram of both breasts in 1 year. . Patient should continue monthly self-breast exams. A clinical breast exam by your physician is recommended on an annual basis. This exam should not preclude additional follow-up of suspicious palpable abnormalities. Note on Divya scores and lifetime risk: 1. A Divya score greater than 3% is considered moderate risk. If this is the case, consider specialist referral to assess eligibility for a risk reducing agent. 2. If overall lifetime risk for the development of breast cancer is 20% or higher, the patient may qualify for future screening with alternating mammogram and breast MRI. [facility], , 09/14/2024 10:55 AM. Electronically signed and approved by: Luís Mckenna M.D. Radiologis
== END | disposition home or self-care (01) ==
LOC: RADMAMWWP 10:15
PROVIDERS: ATTEND Family Medicine
DX: Z12.31 Encounter for screening mammogram for malignant neoplasm of breast (principal); Z80.3 Family history of malignant neoplasm of breast; Z78.0 Asymptomatic menopausal state
CPT/HCPCS: 77063; 77067

== ENCOUNTER → 2024-11-02 | Outpatient (CLI) | payer MEDICARE ==
--- NOTE | 2024-11-02 10:03 | CT ---
EXAMINATION TYPE: CT abdomen pelvis w con CT DLP: 1686.8 mGycm, Automated exposure control for dose reduction was used. DATE OF EXAM: 11/02/2024 9:49 AM COMPARISON: Abdominal radiograph 03/07/2023, pelvic radiograph 12/25/2019 CLINICAL INDICATION:Female, 73 years old with history of R10.811 RIGHT UPPER QUADRANT ABDOMINAL TENDE RNESS; ruq pain TECHNIQUE: Standard CT of the abdomen and pelvis following the administration of 100 cc of Isovue 3 00 IV contrast material and oral contrast. Coronal and sagittal reformats were performed. FINDINGS: LOWER CHEST: Linear scarring or atelectasis within the lingula. Otherwise the lung bases are clear. P artial visualization of right atrial and right ventricular cardiac pacemaking leads. No pericardial e ffusion. ABDOMEN LIVER: Unremarkable GALLBLADDER AND BILE DUCTS: Gallbladder is surgically absent with mild intrahepatic and extra hepatic biliary dilatation likely physiologic and a postcholecystectomy change. No evidence of choledocholit hiasis. PANCREAS: Unremarkable. SPLEEN: Subtle 1.1 cm hypodense lesion within the spleen. Statistically benign. ADRENAL GLANDS: Unremarkable. KIDNEYS AND URETERS: No evidence of hydronephrosis or renal calculus. The kidneys enhance symmetrical ly. Contrast demonstrated within both collecting systems on the delayed phase. Subcentimeter right re nal probable cyst. No follow-up recommended. Cortical thinning of both kidneys. PELVIS BLADDER: Unremarkable REPRODUCTIVE: The uterus is surgically absent. ABDOMEN & PELVIS STOMACH AND BOWEL: Postsurgical changes from gastric sleeve with small hiatal hernia.Distal colonic d iverticulosis without evidence for acute diverticulitis. Enteric contrast reaches the mid small bowel . No bowel wall thickening or surrounding inflammatory changes identified. Short segment jejunal jeju nal intussusception in the left lower quadrant (series 7, image 29). No evidence of bowel obstruction . The appendix is not definitively visualized however no significant inflammatory changes within the right lower quadrant. PERITONEUM: No evidence of pneumoperitoneum or free fluid. VASCULATURE: Mild atherosclerotic calcifications are present throughout the abdominal aorta and its b ranches. No evidence of aortic aneurysm. Multiple pelvic phleboliths. MUSCULOSKELETAL: No acute osseous abnormalities. Postsurgical changes from left hip arthroplasty. Pos tsurgical changes of the lumbar spine with left-sided pedicular screw and naman involving L4-L5. Fixed grade 1 anterolisthesis of L4 on L5. Spinous hardware at this level. Multilevel degenerative disc dis ease. Mild levocurvature of the lumbar spine. LYMPH NODES: Multiple subcentimeter periaortic lymph nodes. Additional multiple prominent bilateral i nguinal lymph nodes. SOFT TISSUE/ABDOMINAL WALL: Postsurgical changes of the anterior abdominal wall with mesh. No evidenc e for recurrent hernia. No inguinal hernia. IMPRESSION: 1. Short segment jejunal to jejunal small bowel intussusception. Typically transient. 2. Multiple nonspecific prominent para-aortic and bilateral inguinal lymph nodes. May be reactive. 3. Colonic diverticulosis without evidence for acute diverticulitis. 4. Post cholecystectomy changes with mild intra and extra hepatic biliary ductal dilatation. Correlat e with biliary labs. Probably related to postcholecystectomy physiology. 5. Post gastric sleeve changes with small hiatal hernia. [facility], , 11/02/2024 10:01 AM
== END | disposition home or self-care (01) ==
LOC: RADCTMAIN 07:49
PROVIDERS: ATTEND Family Medicine
DX: K56.1 Intussusception (principal); K57.30 Diverticulosis of large intestine without perforation or abscess without bleeding; Z90.49 Acquired absence of other specified parts of digestive tract; K44.9 Diaphragmatic hernia without obstruction or gangrene
CPT/HCPCS: 74177; Q9967